=== PATIENT | male | born 1960 | race Caucasian/White ===

== ENCOUNTER → 2024-10-22 15:19 | Outpatient (REF) | payer OTHER, SELFPAY | LOC: RAD 15:19 | PROVIDERS: ATTENDING PHYSICIAN Family Medicine | DX: E26.9 Hyperaldosteronism, unspecified (principal); I10 Essential (primary) hypertension | CPT/HCPCS: 74170; Q9967 ==

== ENCOUNTER → 2024-11-13 11:28 | Outpatient (REF) | payer OTHER, SELFPAY | LOC: DHSLP 11:28 | PROVIDERS: ATTENDING PHYSICIAN Family Medicine | DX: G47.33 Obstructive sleep apnea (adult) (pediatric) (principal); R06.83 Snoring | CPT/HCPCS: 95800 ==

== ENCOUNTER → 2025-05-26 06:45 | Outpatient (REF) | payer OTHER, SELFPAY | LOC: RAD 06:45 | PROVIDERS: ATTENDING PHYSICIAN Family Medicine | DX: R63.4 Abnormal weight loss (principal); R05.1 Acute cough | CPT/HCPCS: 71046; 74177; Q9967 ==